=== PATIENT | male | born 1990 | race Asian ===

== ENCOUNTER 2017-08-31 19:29 | Emergency (ER) | payer OTHER ==
[~2017-08-31] VITALS: Ht 177.8 cm; Wt 72.6 kg
== END 2017-08-31 22:11 | disposition home or self-care (01) ==
LOC: ED 19:29
DX: M79.1 Myalgia (principal); J11.1 Influenza due to unidentified influenza virus with other respiratory manifestations
CPT/HCPCS: 87804; 99282